=== PATIENT | male | born 1995 | race American Indian/Alaskan Native ===

== ENCOUNTER 2017-10-28 21:04 | Emergency (ER) | payer SELFPAY ==
[2017-10-28 21:30] VITALS: BP 122/81
[2017-10-29] MEDS ORDERED: PERCOCET 5/325 PO ONE (01:14)
--- NOTE | 2017-10-29 01:18 | Emergency Department Report ---
- General Chief complaint: Skin/Abscess/Foreign Body Stated complaint: LUMP UNDER ARM Time Seen by Provider: 10/28/17 23:41 Source: patient Mode of arrival: Ambulatory Limitations: No Limitations - History of Present Illness Initial comments: 22-year-old Afro[place] male comes in his complaining of a boil under his left axillary 2 days. Patient reports his never had this before. He denies any fever chills or nausea or vomiting. He reports no past medical history currently takes no medication and has no known drug allergies. Patient also reports he has no primary care provider. He reports his pain is 8 out of 10. He has taken no pain medication prior to arrival. MD complaint: abscess/boil - Related Data Previous Rx's Medication Instructions Recorded Last Taken Type Ibuprofen 600 mg PO Q8H PRN #30 tablet 10/29/17 Unknown Rx Allergies Allergy/AdvReac Type Severity Reaction Status Date / Time No Known Allergies Allergy Unverified 10/28/17 21:30 Abscess Boil HPI - HPI Chief Complaint: Skin/Abscess/Foreign Body Stated Complaint: LUMP UNDER ARM Time Seen by Provider: 10/28/17 23:41 Home Medications: Previous Rx's Medication Instructions Recorded Last Taken Type Ibuprofen 600 mg PO Q8H PRN #30 tablet 10/29/17 Unknown Rx Allergies/Adverse Reactions: Allergies Allergy/AdvReac Type Severity Reaction Status Date / Time No Known Allergies Allergy Unverified 10/28/17 21:30 ED Review of Systems ROS: Stated complaint: LUMP UNDER ARM Other details as noted in HPI Constitutional: denies: chills, fever Eyes: denies: eye pain, eye discharge, vision change ENT: denies: ear pain, throat pain Respiratory: denies: cough, shortness of breath, wheezing Cardiovascular: denies: chest pain, palpitations Endocrine: no symptoms reported Gastrointestinal: denies: abdominal pain, nausea, diarrhea Genitourinary: denies: urgency, dysuria Musculoskeletal: denies: back pain, joint swelling, arthralgia Skin: lesions (left axillary). denies: rash Neurological: denies: headache, weakness, paresthesias Psychiatric: denies: anxiety, depression Hematological/Lymphatic: denies: easy bleeding, easy bruising ED Past Medical Hx - Past Medical History Previous Medical History?: No - Surgical History Additional Surgical History: Tonsillectomy - Social History Smoking Status: Current Every Day Smoker Substance Use Type: None - Medications Home Medications: Home Medications Medication Instructions Recorded Confirmed Last Taken Type Ibuprofen 600 mg PO Q8H PRN #30 tablet 10/29/17 Unknown Rx ED Physical Exam - General Limitations: No Limitations General appearance: alert, in no apparent distress - Head Head exam: Present: atraumatic, normocephalic - Eye Eye exam: Present: normal appearance - ENT ENT exam: Present: mucous membranes moist - Neck Neck exam: Present: normal inspection - Respiratory Respiratory exam: Present: normal lung sounds bilaterally. Absent: respiratory distress - Cardiovascular Cardiovascular Exam: Present: regular rate, normal rhythm. Absent: systolic murmur, diastolic murmur, rubs, gallop - GI/Abdominal GI/Abdominal exam: Present: soft, normal bowel sounds - Rectal Rectal exam: Present: deferred - Extremities Exam Extremities exam: Present: normal inspection - Back Exam Back exam: Present: normal inspection - Neurological Exam Neurological exam: Present: alert, oriented X3 - Psychiatric Psychiatric exam: Present: normal affect, normal mood - Skin Skin exam: Present: warm, dry, intact, normal color, other (golf-sized abscess under left axillary tender to palpate non-indurated mouth fluctuant). Absent: rash ED Course Vital Signs 10/28/17 21:27 Temperature 98 F Pulse Rate 69 Respiratory 16 Rate Blood Pressure 122/81 O2 Sat by Pulse 100 Oximetry - I & D Left Arm Site: golf size Blade Size: 11 I & D Procedure: betadine prep, sterile drapes applied, sterile dressing applied , no gauze wick placed Progress: Patient tolerated procedure well ED Medical Decision Making - Medical Decision Making Patient's been evaluated by this provider fast track. I discussed the patient we'll give him a Percocet for pain. Incision and drain was successful with thick yellowish discharge. No surrounding cellulitis. Discharge patient home on ibuprofen for him to follow up with her primary care provider if symptoms persist or gets worse. Patient verbalized understanding. Critical care attestation.: If time is entered above; I have spent that time in minutes in the direct care of this critically ill patient, excluding procedure time. ED Disposition Clinical Impression: Boil, axilla Disposition: DC- TO HOME OR SELFCARE Is pt being admited?: No Does the pt Need Aspirin: No Condition: Stable Instructions: Furunculosis and Carbunculosis (ED) Additional Instructions: Please take pain medication as prescribed. Please do dressing changes daily for the next 3 days. Please follow up with her primary care provider is symptoms persist or gets worse. Prescriptions: Ibuprofen 600 mg PO Q8H PRN #30 tablet PRN Reason: Pain Referrals: VIKAS HILL MD [Primary Care Provider] - 3-5 Days Forms: Work/School Release Form(ED)
== END 2017-10-29 02:10 | disposition home or self-care (01) ==
LOC: ED 21:04
DX: L02.412 Cutaneous abscess of left axilla (principal); F17.200 Nicotine dependence, unspecified, uncomplicated
CPT/HCPCS: 99282